=== PATIENT | female | born 2000 | race Caucasian/White ===

== ENCOUNTER 2021-12-26 21:06 | Emergency (ER) | payer BC ==
[~2021-12-26 21:06] MED LIST: DEPO INJ INJ; IBUPROFEN600 MG PO; KEFLEX CAP 500500 MG PO; NORCO 5-325 TA1 EACH PO; VITAMIN C 500500 MG PO
[2021-12-26] MEDS ORDERED: CEPHALEXIN500 MG PO (22:29)
== END 2021-12-26 22:52 | disposition home or self-care (01) ==
LOC: ER1 21:06
DX: S91.342A Puncture wound with foreign body, left foot, initial encounter (principal); Z23 Encounter for immunization; W22.8XXA Striking against or struck by other objects, initial encounter; Y92.009 Unspecified place in unspecified non-institutional (private) residence as the place of occurrence of the external cause
CPT/HCPCS: 73630; 90471; 90715; 99283

== ENCOUNTER → 2022-02-19 | Outpatient (CLI) | payer BC ==
[~2022-02-19] MED LIST changes: +CEPHALEXIN500 MG PO
== END ==
LOC: RAD 17:21
DX: K59.00 Constipation, unspecified (principal)
CPT/HCPCS: 74018

== ENCOUNTER 2022-04-13 16:36 | Emergency (ER) | payer BC ==
[2022-04-13 20:49] LABS: RED BLOOD COUNT 4.87 M/UL (4.00-5.10); WHITE BLOOD COUNT 12.5 K/UL (4.5-11.0)
[2022-04-13 21:04] LABS: BUN/CREATININE RATIO 17 (0-10)
== END 2022-04-14 01:50 | disposition home or self-care (01) ==
LOC: ER1 16:36
PROVIDERS: Physician Assistant
DX: O21.9 Vomiting of pregnancy, unspecified (principal); Z3A.11 11 weeks gestation of pregnancy
CPT/HCPCS: 80053; 81001; 85025; 87077; 87086; 87186; 96360; 99284